=== PATIENT | female | born 1945 | race Caucasian/White ===

== ENCOUNTER 2016-07-26 13:12 | Emergency (ER) | payer MEDICARE, OTHER ==
[~2016-07-26 13:12] MED LIST: ADVAIR 1001 DISK W/D; ALBUTEROL17 GM; ALBUTEROL17 GM INH; AMBIEN; AMBIEN CR; AMBIEN PO; AMITRYPTYLINE PO; ASPIRIN81 M1 PO; ATENOLOL PO; ATENOLOL-CHLOR1 EACH PO; ATENOLOL50 MG PO; BACLOFEN10 MG PO; BACTRIM DS TABL1 TA1 PO; BACTRIM DS TABL1 TAB PO; BENADRYL PO; CELEBREX PO; CERTAGEN PO; CLINDAMYCIN HC300 MG PO; COLACE PO; COMBIVENT U/D3 M1 NEB; COUMADIN PO; COZAAR25 MG PO; CRANBERRY TABLETS PO; CYMBALTA; DOXEPIN PO; DUONEB 2.5-0.5 M3 ML NEB; EFFEXOR PO; EFFEXOR75 MG PO; FERROUS SULFATE PO; FISH OIL 1,0001 CAP PO; FLEXERIL; FLEXERIL PO; FORTAMET; FORTAMET1000 MG/B1 PO; GLUCOPHAGE XR500 MG PO; GLUCOSAMINE & C1 CAP PO; IBUPROFEN PO; IMDUR PO; IPRATROPIUM0.2 MG/ML NEB; KCL; KCL PO; KEFLEX; KEFLEX PO; KEFLEX500 MG PO; KLONOPIN PO; KLONOPIN1 MG PO; KLOR-CON PO; LASIX; LORATADINE PO; MACRODANTIN; MAG-OXIDE400 MG PO; MAGNESIUM OXID200 MG PO; MELATONIN3 MG PO; MELATONIN5 M2 PO; METFORMIN HCL1000 M1 PO; MOBIC; MOVE FREE; NAPROXEN PO; NITROGYLCERIN SUBLINGUAL; NORVASC PO; NORVASC10 MG PO; NYSTATIN5 ML PO; OXYCODONE-APAP1 EAC5 PO; PERCOCET; PERCOCET10 PO; PERCOCET5/325 PO; PHENERGAN; PREVACID; PRILOSEC PO; PROPRANOLOL; PROTONIX PO; PROVENTIL INHALER; PULMICORT200 MCG/AE INH; PYRIDIUM PO; RED RICE YEAST PO; RED YEAST RICE600 M1 PO; REGLAN; SEROQUEL; SPIRIVA18 MCG; SPIRIVA18 MCG INH; TAGAMET PO; TEGRETOL; TENORETIC 50 TA1 TAB; TENORETIC 50 TA1 TAB PO; TIZANIDINE HCL4 M1 PO; TOPIRAGEN100 MG PO; TRAZODONE; TRAZODONE PO; ULTRAM PO; VASOTEC10 MG PO; VITAMIN C PO; VITAMIN D 4001 UDTAB PO; VITAMIN D1000 UNI1 PO; ZANAFLEX PO; ZOCOR PO
[2016-08-13] MEDS ORDERED: OXYCODONE HCL10 MG PO (11:57)
[2016-08-13] MEDS ORDERED: ATENOLOL50 MG PO (11:58)
[2016-08-13] MEDS ORDERED: ZANAFLEX4 M1 PO (11:58)
[2016-08-13] MEDS ORDERED: NORVASC10 MG PO (11:59)
[2016-08-13] MEDS ORDERED: PROAIR RESPICL90 MCG INH (12:00)
[2016-08-13] MEDS ORDERED: PULMICORT0.25 MG/2 INH (12:01)
[2016-08-13] MEDS ORDERED: ALBUTEROL MININEB NEB (12:01)
[2016-08-13] MEDS ORDERED: ATROVENT HFA12.9 GM INH (12:02)
[2016-08-13] MEDS ORDERED: MELATIN3 MG PO (12:03)
[2016-08-13] MEDS ORDERED: KLONOPIN1 MG PO (12:03)
[2016-08-13] MEDS ORDERED: OMEGA 3-6-9 11200 M1 PO (12:03)
[2016-08-13] MEDS ORDERED: OPTIFLEX COMPL1 EACH PO (12:04)
[2016-08-13] MEDS ORDERED: ADVIL LIQUI-GE200 MG PO (12:04)
[2016-08-13] MEDS ORDERED: ALEVE220 M1 PO (12:04)
[2016-08-19] MEDS ORDERED: METFORMIN HCL1000 M1 PO (12:52)
[2016-10-28] MEDS ORDERED: NITROFURANTOIN100 M4 PO (14:33)
[2016-10-28] MEDS ORDERED: DITROPAN5 MG PO (14:34)
[2016-10-28] MEDS ORDERED: FAMOTIDINE20 M1 PO (14:34)
[2016-10-28] MEDS ORDERED: LAMOTRIGINE25 M1 PO (14:34)
[2016-10-28] MEDS ORDERED: ASPERCREME76.5 GM EXT (14:35)
[2016-10-28] MEDS ORDERED: ALEVE220 M1 PO (14:35)
== END 2016-07-26 16:25 | disposition home or self-care (01) ==
LOC: CED 13:12 → CFTX 13:12
DX: L03.114 Cellulitis of left upper limb (principal); E11.9 Type 2 diabetes mellitus without complications; I10 Essential (primary) hypertension; F17.200 Nicotine dependence, unspecified, uncomplicated; Z88.5 Allergy status to narcotic agent; Z88.1 Allergy status to other antibiotic agents; Z88.8 Allergy status to other drugs, medicaments and biological substances
CPT/HCPCS: 99283

== ENCOUNTER → 2016-08-19 | Day surgery (SDC) | payer MEDICARE, OTHER ==
[~2016-08-19] MED LIST changes: +ADVIL LIQUI-GE200 MG PO; +ALBUTEROL MININEB NEB; +ALEVE220 M1 PO; +ASPERCREME76.5 GM EXT; +ATROVENT HFA12.9 GM INH; +DITROPAN5 MG PO; +FAMOTIDINE20 M1 PO; +LAMOTRIGINE25 M1 PO; +MELATIN3 MG PO; +NITROFURANTOIN100 M4 PO; +OMEGA 3-6-9 11200 M1 PO; +OPTIFLEX COMPL1 EACH PO; +OXYCODONE HCL10 MG PO; +PROAIR RESPICL90 MCG INH; +PULMICORT0.25 MG/2 INH; +ZANAFLEX4 M1 PO
--- NOTE | ~2016-08-19 | OR ---
Unit #: [id number] #: [id number] Patient: SANDEEP ROQUE [id number] [address] [address] [id number] MR#: [id number] NAME: SANDEEP ROQUE. ROOM: Date of Procedure: 08/19/2016 Admission Date: 08/19/2016 Surgeon: Rodolfo Araya M.D. : 1945 Attending Physician: Rodolfo Araya M.D. Referring Physician: Rodolfo Araya M.D. Primary Care Physician: Rodolfo Vickers D.O. OPERATIVE REPORT PREOPERATIVE DIAGNOSES Personal history of adenomatous polyps of colon and family history of colon cancer. POSTOPERATIVE DIAGNOSES 1. Colon polyps x3. 2. Mild sigmoid diverticulosis. 3. Cystocele and rectocele. PROCEDURES PERFORMED 1. Rectovaginal examination under anesthesia. 2. Colonoscopy to cecum with cold biopsy forceps polypectomy x3. ANESTHESIA Monitored anesthesia. INDICATIONS FOR PROCEDURE Ms. Roque is a 71-year-old female, who came to my office complaining of her bottom falling out. On examination, she has a rectocele and cystocele. She also has a reducible left inguinal hernia. She has a personal history of adenomatous polyps of colon and a family history of colon cancer and has not had a surveillance colonoscopy in well over 10 years. I discussed with the patient doing a colonoscopy to clear her colon due to her personal and family history. Elective inguinal hernia repair could be performed and then she needs to be referred to urogynecology about her rectocele and cystocele. I discussed colonoscopy with the patient including risks, benefits, complications, bowel prep, and she agrees to proceed. DESCRIPTION OF PROCEDURE The patient was admitted to the [facility], positively identified, transported to the endoscopy unit, where after appropriate monitoring and positioning, she was sedated by the nurse black ash worker. On rectovaginal examination, she had a ttab-yo-rwomoaap cystocele and rectocele. She had an external hemorrhoidal skin tags, but no active hemorrhoidal disease. On digital examination, there was no palpable mass. Colonoscope was passed through the anal verge throughout the extent of the colon to the cecum. On antegrade and retrograde visualization, three polyps were identified, one in the mid ascending colon, one at 70 cm from the anal verge, and one at 25 cm from the anal verge. All were completely excised with multiple bites with cold biopsy forceps. Hemostasis was adequate. In the sigmoid colon, she had a few Unit #: [id number] #: [id number] Patient: SANDEEP ROQUE scattered diverticula, but no evidence of any diverticulitis. Rest of the evaluation was unremarkable in the rectal vault. No internal hemorrhoidal disease was seen. The patient tolerated the procedure well and was transported to Recovery in stable condition. Findings were discussed with her . We will actively schedule a hernia repair when her pathology has been reviewed and then refer her on to the Urogynecology. The patient and her family understand and agree to follow up. Dictated by... Loli Ramos/leny TD: 08/20/2016 12:48 JOB #: [id number] OPERATIVE REPORT Page 1 of 1 X Rodolfo Araya MD PROCEDURE OPERATIVE NOTE
== END | disposition home or self-care (01) ==
LOC: COPS 12:04
DX: D12.2 Benign neoplasm of ascending colon (principal); K63.5 Polyp of colon; K62.1 Rectal polyp; K57.30 Diverticulosis of large intestine without perforation or abscess without bleeding; Z86.010 Personal history of colon polyps; Z80.0 Family history of malignant neoplasm of digestive organs; N81.10 Cystocele, unspecified; N81.6 Rectocele; E11.9 Type 2 diabetes mellitus without complications; K40.90 Unilateral inguinal hernia, without obstruction or gangrene, not specified as recurrent; K58.9 Irritable bowel syndrome, unspecified; K21.9 Gastro-esophageal reflux disease without esophagitis; Z79.84 Long term (current) use of oral hypoglycemic drugs; F17.200 Nicotine dependence, unspecified, uncomplicated; J44.9 Chronic obstructive pulmonary disease, unspecified; I25.10 Atherosclerotic heart disease of native coronary artery without angina pectoris; I10 Essential (primary) hypertension; M06.9 Rheumatoid arthritis, unspecified
CPT/HCPCS: 82947; 88305

== ENCOUNTER → 2016-10-28 | Outpatient (CLI) | payer MEDICARE, OTHER ==
--- NOTE | ~2016-10-28 | EKG ---
PATIENT: SANDEEP OLIVA UNIT #: [id number] Ventricular Rate: 61 BPM Atrial Rate: 61 BPM P-R Interval: 192 ms QRS Duration: 92 ms Q-T Interval: 404 ms QTC Calculation(Bezet): 406 ms P Homer: 47 degrees Calculated R Homer: 69 degrees Calculated T Homer: 76 degrees Diagnosis Line: Normal sinus rhythm Diagnosis Line: Normal ECG Diagnosis Line: When compared with ECG of 05-FEB-2016 02:11, Diagnosis Line: No significant change was found Diagnosis Line: Confirmed by SARITHA LOCK MD ([id number]) on Diagnosis Line: 10/29/2016 9:11:25 AM INTERPRETING MD: ASHVIN MESSER
[2016-10-28 13:48] LABS: HEMATOCRIT 40.8 % (35.0-45.0); HEMOGLOBIN 13.8 gm/dL (12.0-16.0); MEAN CELL VOLUME 95.1 FL (83-96); MEAN CORPUSCULAR HEMOGLOBIN 32.3 PG (28-34); MEAN CORPUSCULAR HGB CONC 33.9 g/dL (30-36); MEAN PLATELET VOLUME 8.2 FL (6.5-11.5); RED BLOOD COUNT 4.29 X10e (3.90-5.30); RED CELL DISTRIBUTION WIDTH 13.6 % (11.0-15.5); WHITE BLOOD COUNT 7.1 X10e3 (4.0-10.5)
[2016-10-28 15:03] LABS: CREATININE SERUM 0.6 mg/dL (0.6-1.4); GLOM FILT RATE Estimated 92.4 mL/min (>60); POTASSIUM 4.5 mmol/L (3.5-5.1)
== END | disposition home or self-care (01) ==
LOC: CAMB 13:00
PROVIDERS: Specialist
DX: Z01.818 Encounter for other preprocedural examination (principal)
CPT/HCPCS: 36415; 80048; 85027; 93005